=== PATIENT | female | born 1980 | race Caucasian/White ===

== ENCOUNTER 2022-08-26 08:00 | Outpatient (CLI) | payer SELFPAY ==
--- NOTE | 2022-08-26 17:07 | XRAY Report ---
PROCEDURE: Chest 2 View X-Ray INDICATIONS: PRODUCTIVE COUGH TECHNIQUE: Frontal and lateral views of the chest. COMPARISON: None. FINDINGS: The lungs are clear, heart and mediastinum appear normal as do the bones and soft tissues for age. No pneumonia is found, source of persistent cough is not identified. IMPRESSION: Normal for age, source of persistent cough is not found. Reviewed by: Keith Robert MD on 08/26/2022 5:06 PM PST Approved by: Keith Robert MD on 08/26/2022 5:06 PM PST Station ID: [id number]
== END 2022-08-26 23:59 | disposition home or self-care (01) ==
LOC: DI.S 08:00
PROVIDERS: ATTEND Physician Assistant
DX: R05.9 Cough, unspecified (principal)